=== PATIENT | male | born 1990 | race Caucasian/White ===

== ENCOUNTER 2023-07-30 16:56 | Emergency (ER) | payer OTHER ==
[2023-07-30 17:30] VITALS: O2SAT 98
--- NOTE | 2023-07-30 19:19 | XRAY Report ---
PROCEDURE: Forearm LT INDICATIONS: Trauma TECHNIQUE: 2 views of the forearm were acquired. COMPARISON: None FINDINGS: Bones: No fractures or dislocations. No suspicious bony lesions. Soft tissues: No suspicious soft tissue calcifications or masses. IMPRESSION: Unremarkable forearm radiographs Reviewed by: Jonnie Prater MD on 07/30/2023 6:17 PM AKDT Approved by: Jonnie Prater MD on 07/30/2023 6:17 PM AKDT Station ID: [id number]
--- NOTE | 2023-07-30 19:19 | XRAY Report ---
PROCEDURE: Wrist 3+V LT INDICATIONS: trauma TECHNIQUE: 3 views of the wrist were acquired. COMPARISON: None FINDINGS: Bones: No acute fractures or dislocations. No suspicious bony lesions. Old ununited ulnar styloid f racture Soft tissues: No suspicious soft tissue calcifications or masses. IMPRESSION: No acute fracture or foreign body Reviewed by: Jonnie Prater MD on 07/30/2023 6:18 PM AKGERARDO Approved by: Jonnie Prater MD on 07/30/2023 6:18 PM AKDT Station ID: [id number]
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
[2023-07-30 19:50] VITALS: BP 115/70
== END 2023-07-30 19:49 | disposition home or self-care (01) ==
LOC: ED 16:56
DX: S63.502A Unspecified sprain of left wrist, initial encounter (principal); V18.4XXA Pedal cycle driver injured in noncollision transport accident in traffic accident, initial encounter; Y93.55 Activity, bike riding
CPT/HCPCS: 99283